=== PATIENT | female | born 2005 | race Caucasian/White ===

== ENCOUNTER 2025-08-14 20:48 | Outpatient (REF) | payer OTHER, SELFPAY ==
--- OUTSIDE RECORDS SUMMARY | 2025-08-11 08:50 | XMS_ITS | Encounter Summary ---
Author Organization [facility] Address [address] [place] [address] Phone Care Team Providers Care Milking Machine Mechanic Name Role Phone Renata Lawson DO Primary Care Provider +1- [phone] Reason for Referral * CV Imaging (Routine) - Pending ReviewSpecialtyDiagnoses / ProceduresReferred By ContactReferred To ContactCardiology Diagnoses Bicuspid aortic valve (HHS-HCC) Patent foramen ovale (HHS-HCC) Procedures Transthoracic Echo Complete [place] ECHO TTHRC R-T 2D W/WOM-MODE COMPL SPEC&COLR D Guy Charles MD [address] [facility], [address] [address] Phone: tel: fax: Referral IDStatusReasonStart DateExpiration DateVisits RequestedVisits [id number] Review Perform Procedure * Consultation (Routine) - AuthorizedSpecialtyDiagnoses / ProceduresReferred By ContactReferred To ContactCardiology Diagnoses Bicuspid aortic valve (HHS-HCC) Patent foramen ovale (HHS-HCC) Procedures Follow Up In Cardiology Guy Charles MD [address], [address] [address] Phone: tel: fax: Guy Charles MD [address], [address] [address] Phone: tel: fax: Referral IDStatusReasonStart DateExpiration DateVisits RequestedVisits [id number]/26/202512/26/202611 Reason for Visit * ReasonCommentsFollow-up2yr Encounter Details DateTypeDepartmentCare Team (Latest Contact Info)Xaogyulpokc88/26/2025 8:50 AM ESTOffice Visit [facility] [address] [phone] Guy Charles MD 703 [facility], [address] [address] Bicuspid aortic valve (HHS-HCC) (Primary Dx); Patent foramen ovale (HHS-HCC); BMI 27.0-27.9,adult Discharge Disposition: Home Social History Tobacco UseTypesPacks/DayYears UsedDateSmoking Tobacco: NeverSmokeless Tobacco: NeverAlcohol UseStandard Drinks/WeekCommentsYes0 (1 standard drink = 0.6 oz pure alcohol)CommentsUnknownSex and Gender InformationValueDate RecordedSex Assigned at BirthNot on fileLegal ZbdFnyuft79/25/2022 11:28 PM ESTGender IdentityNot on fileSexual OrientationNot on filedocumented as of this encounter Last Filed Vital Signs Vital SignReadingTime TakenCommentsBlood Xhoqdkxg310/7208/11/2025 9:24 AM EST Pulse--Temperature--Respiratory Rate--Oxygen Saturation--Inhaled Oxygen Concentration--Rrxyzl38 kg (150 lb)08/11/2025 9:24 AM YNRJdkirc854.5 cm (5' 2 ) 08/11/2025 9:24 AM ESTBody Mass Index27.44110/12/2024 9:24 AM ESTdocumented in this encounter Patient Instructions * Patient Instructions* Nubia Carroll LPN - 08/11/2025 8:50 AM EST Please bring all medicines, vitamins, and herbal supplements with you when you come to the office. Prescriptions will not be filled unless you are compliant with your follow up appointments or have a follow up appointment scheduled as per instruction of your physician. Refills should be requested at the time of your visit. BMI was above normal measurement. Current weight: 68 kg (150 lb) Weight change since last visit (-) denotes wt loss 5 lbs Weight loss needed to achieve BMI 25: 13.6 Lbs Weight loss needed to achieve BMI 30: -13.7 Lbs Provided instructions on dietary changes Provided instructions on exercise. * Attachments The following attachments cannot be sent through Care Everywhere. * Mediterranean Diet ([place]) documented in this encounter Progress Notes * Guy Charles MD - 08/11/2025 8:50 AM EST Chief Complaint Patient presents with Follow-up 2yr Subjective Darren To is a 20 y.o. female HPI Patient here for follow-up to management for previous observation abnormal echo cardiogram showing possible congenitally bicuspid aortic valve and minimally patent PFO. Since last time I saw her she denies any cardiac complaint of chest pain, palpitation, lightheadedness, dizziness or syncope. She described functional class I. Assessment 1. 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 Minimally patent PFO based on previous echo 2. Mild anxiety 3. Mildly overweight Plan 1. I reviewed at length the natural history of PFO and bicuspid aortic valve. Patient does not haveany cardiac symptoms at the moment. Patient is very active and plays competitive sport. I recommended aspirin and consideration to repeat her echo 2. I believe the patient is safe and can continue competitive sports 3. I advised the patient to take a baby aspirin 4. Patient was advised to maintain healthy weight 5. Follow-up in 1 to 2 years or earlier if the need arise Review of Systems All other systems reviewed and are negative. Vitals: 08/11/25 0924 BP: 108/72 BP Location: Left arm Patient Position: Sitting Weight: 68 kg (150 lb) Height: 1.575 m (5' 2 ) Objective Physical Exam Constitutional: Appearance: Normal appearance. HENT: Nose: Nose normal. Neck: Vascular: No carotid bruit. Cardiovascular: Rate and Rhythm: Normal rate. Pulses: Normal pulses. Heart sounds: Murmur heard. Systolic murmur is present with a grade of 1/6. Pulmonary: Effort: Pulmonary effort is normal. Abdominal: General: Bowel sounds are normal. Palpations: Abdomen is soft. Musculoskeletal: General: Normal range of motion. Cervical back: Normal range of motion. Right lower leg: No edema. Left lower leg: No edema. Skin: General: Skin is warm and dry. Neurological: General: No focal deficit present. Mental Status: She is alert. Psychiatric: Mood and Affect: Mood normal. Behavior: Behavior normal. Thought Content: Thought content normal. Judgment: Judgment normal. Allergies Patient has no known allergies. Current Medications Current Outpatient Medications Medication Instructions aspirin 81 mg, oral, Daily RT clindamycin (Cleocin T) 1 % swab APPLY TOPICALLY TO FACE TWICE DAILY norgestimate-ethinyl estradioL (Tri-Sprintec, 28,) 0.18/0.215/0.25 mg-0.035mg (28) tablet 1 tablet,Daily Assessment/Plan 1. Bicuspid aortic valve (HHS-HCC) Follow Up In Cardiology Transthoracic Echo Complete 2. Patent foramen ovale (HHS-HCC) Follow Up In Cardiology Transthoracic Echo Complete 3. BMI 27.0-27.9,adult Scribe Attestation By signing my name below, INubia LPN, Scribe attest that this documentation has been prepared under the direction and in the presence of MD Mary. Provider Attestation - Scribe documentation All medical record entries made by the Scribe were at my direction and personally dictated by me. Ihave reviewed the chart and agree that the record accurately reflects my personal performance of the history, physical exam, discussion and plan. documented in this encounter Plan of Treatment DateTypeDepartmentCare Team (Latest Contact Info)Igumavehczn71/11/2026 7:45 AM EDTAppointment at [facility] [address] [facility] [address] [place] [phone] 08/07/2026 3:50 PM ESTOffice Visit at [facility] [address] [facility] [address] [place] [phone] Guy Charles MD [address] [facility] [address], [address] [place] [address] NameTypePriorityAssociated DiagnosesOrder ScheduleTransthoracic Echo Complete EchocardiographyRoutine Bicuspid aortic valve (HHS-HCC) Patent foramen ovale (HHS-HCC) Expected: 08/11/2025 (Approximate), Expires: 08/11/2027documented as of this encounter Visit Diagnoses Diagnosis Bicuspid aortic valve (HHS-HCC)- Primary Congenital insufficiency of aortic valve Patent foramen ovale (HHS-HCC) Ostium secundum type atrial septal defect BMI 27.0-27.9,adult documented in this encounter Care Teams Team MemberRelationshipSpecialtyStart DateEnd Date Renata Lawson DO [address] [place] [address] PCP - General08/17/09documented as of this encounter
--- OUTSIDE RECORDS SUMMARY | 2025-08-14 14:00 | XMS_ITS | Encounter Summary ---
Author Organization [facility] Address [address] [facility] [place] [address] Care Team Providers Care Lining Scrubber Name Role Phone Lulu Renata Berrios DO Primary Care Provider +1- [phone] Reason for Visit * ReasonCommentsGynecologic Exam Encounter Details DateTypeDepartmentCare Team (Latest Contact Info)Gjuqixyptnl77/29/2025 2:00 PM ESTProcedure Visit [facility] LOCKEN [address] [facility] [place] [address] Elif Patel, WILD [address] [facility] [place] [address] Well woman exam with routine gynecological exam; Pectoralis minor syndrome Social History Tobacco UseTypesPacks/DayYears UsedDateSmoking Tobacco: NeverSmokeless Tobacco: NeverAlcohol UseStandard Drinks/WeekCommentsYes0 (1 standard drink = 0.6 oz pure alcohol)Caffeine: occasional teaAUDIT-CAnswerDate RecordedQ1: How often do you have a drink containing alcohol?2-4 times a month01/19/2025Q2: How many drinks containing alcohol do you have on a typical day when you are drinking?1 or 2 01/19/2025Q3: How often do you have six or more drinks on one occasion?Never 01/19/2025PHQ-2AnswerDate RecordedPatient Health Questionnaire-2 Score0 01/19/2025CommentsNoSex and Gender InformationValueDate RecordedSex Assigned at BirthNot on fileLegal BniGbhddd13/15/2023 7:34 PM EDTGender Identity Not on fileSexual OrientationNot on filedocumented as of this encounter Last Filed Vital Signs Vital SignReadingTime TakenCommentsBlood Oejbovqy527/7408/14/2025 2:37 PM EST Pulse--Temperature--Respiratory Rate--Oxygen Saturation--Inhaled Oxygen Concentration--Qtpdtl43.5 kg (151 lb)08/14/2025 2:37 PM ESTHeight--Body Mass Index27.6206 3:06 PM EDTdocumented in this encounter Progress Notes * Felipa Saavedra MA - 08/14/2025 2:00 PM EST Reason for Appointment: Patient ID: Darren To is a 20 y.o. female who presents for Gynecologic Exam Patient presents today for Annual Exam. MEDICATIONS Current Outpatient Medications Medication Instructions Adapalene-Benzoyl Peroxide (Epiduo Forte) 0.3-2.5 % gel aspirin 81 mg, Every other day clindamycin (Cleocin T) 1 % swab 1 application , 2 times daily clobetasol (Temovate) 0.05 % ointment 1 application , Every 24 hours hydrocortisone 0.5 % cream 2 times daily Tri-Lo-Calli 0.18/0.215/0.25 MG-25 MCG tablet TAKE 1 TABLET BY MOUTH IN THE MORNING. PT NEEDS APPOINTMENT FOR FURTHER REFILLS ALLERGIES No Known Allergies PROBLEMS Active Ambulatory Problems Diagnosis Date Noted Allergic contact dermatitis due to cosmetics 01/05/2023 Bicuspid aortic valve ([facility]) 11/27/2022 Patellofemoral syndrome of right knee 03/17/2023 Patent foramen ovale ([facility]) 11/27/2022 Pectoralis minor syndrome 03/17/2023 Plantar wart 03/17/2023 Resolved Ambulatory Problems Diagnosis Date Noted Loose body in knee 03/17/2023 Other chronic pain 03/17/2023 PFO (patent foramen ovale) ([facility]) 03/18/2023 Past Medical History: Diagnosis Date Acne HPV vaccine 2020 HISTORY PAST MEDICAL HISTORY SOCIAL HISTORY Past Medical History: Diagnosis Date Acne Bicuspid aortic valve ([facility]) 2021 HPV vaccine 2020 Gardasil 9 Series completed PFO (patent foramen ovale) ([facility]) 2021 Social History Tobacco Use Smoking status: Never Smokeless tobacco: Never Substance Use Topics Alcohol use: Yes Comment: Caffeine: occasional tea Drug use: Never FAMILY HISTORY Family History Problem Relation Name Age of Onset Crohn's disease Mother Hypertension Father Hyperlipidemia Father No Known Problems Sister Polycystic ovary syndrome Mother's Sister Other (hysterectomy) Paternal Grandmother d/t cancer SURGICAL HISTORY Past Surgical History: Procedure Laterality Date WISDOM TOOTH EXTRACTION 2024 REVIEW OF SYSTEMS Review of Systems: Review of Systems Constitutional: Negative. HENT: Negative. Eyes: Negative. Respiratory: Negative. Cardiovascular: Negative. Gastrointestinal: Negative. Genitourinary: Negative. Musculoskeletal: Negative. Skin: Negative. Neurological: Negative. All other systems reviewed and are negative. Hematological: Negative. Endocrine: Negative. Allergic/Immunologic: Negative. OBJECTIVE Objective: Physical Exam Constitutional: Appearance: Normal appearance. She is well-developed. Genitourinary: Vulva normal. Right Adnexa: not tender and no mass present. Left Adnexa: not tender and no mass present. No cervical discharge. Breasts: Breasts are soft. Right: Normal. Left: Normal. HENT: Head: Normocephalic. Nose: Nose normal. Mouth/Throat: Mouth: Mucous membranes are moist. Cardiovascular: Rate and Rhythm: Normal rate and regular rhythm. Pulmonary: Effort: Pulmonary effort is normal. Breath sounds: Normal breath sounds. Abdominal: General: Bowel sounds are normal. There is no distension. Palpations: Abdomen is soft. Tenderness: There is no abdominal tenderness. There is no guarding or rebound. Musculoskeletal: General: No swelling. Normal range of motion. Cervical back: Normal range of motion. Right lower leg: No edema. Left lower leg: No edema. Neurological: General: No focal deficit present. Mental Status: She is alert and oriented to person, place, and time. Skin: General: Skin is warm and dry. Psychiatric: Mood and Affect: Mood normal. Behavior: Behavior normal. Vitals and nursing note reviewed. Exam conducted with a local delivery driver present. Vitals: Estimated body mass index is 27.07 kg/m?? as calculated from the following: Height as of 01/19/25: 5' 2 . Weight as of 01/19/25: 148 lb. BP: No LMP recorded. Assessment/Plan ICD-10-CM 1. Well woman exam with routine gynecological exam Z01.419 Assessment/Plan Annual Exam: Patient presents today for an annual exam. Patient states she is doing well and has no complaints. Pap was obtained without difficulty. No orders of the defined types were placed in this encounter. Follow Up: Patient is to return in one year for annual unless needed otherwise. Documented by Felipa Saavedra MA on behalf of: Elif Patel NP documented in this encounter Plan of Treatment DateTypeDepartmentCare Team (Latest Contact Info)Myikqreddrx09/13/2027 9:00 AM ESTProcedure Visit [facility] MELGARGYN [address] [facility] [place] [address] Elif Patel NP [address] [facility] [place] [address] NameTypePriorityAssociated DiagnosesOrder SchedulePap SmearPathology and CytologyRoutine Well woman exam with routine gynecological exam Ordered: 08/14/2025documented as of this encounter Visit Diagnoses Diagnosis Well woman exam with routine gynecological exam Routine gynecological examination Pectoralis minor syndrome Other specified disorders of arteries and arterioles documented in this encounter Care Teams Team MemberRelationshipSpecialtyStart DateEnd Date Renata Lawson DO [address] [place] [address] PCP - GeneralFamily Medicine12/24/22documented as of this encounter
--- OUTSIDE RECORDS SUMMARY | 2025-08-14 21:07 | XMS_ITS | Clinical Summary ---
Author Organization [facility] Address [address] [place] [address] Phone Care Team Providers Care Boat Master Name Role Phone Renata Lawson DO Primary Care Provider +1- [phone] Allergies No known active allergies Medications MedicationSigDispense QuantityRefillsLast FilledStart DateEnd DateStatus aspirin 81 mg chewable tablet Chew and swallow 1 tablet (81 mg) once daily.Active norgestimate-ethinyl estradioL (Tri-Sprintec, 28,) 0.18/0.215/0.25 mg-0.035mg (28) tablet Take 1 tablet by mouth once daily.02/24/2022ctive clindamycin (Cleocin T) 1 % swab APPLY TOPICALLY TO FACE TWICE DAILYActive Active Problems ProblemNoted DateDiagnosed DateBMI 27.0-27.9,adult08/11/2025Never smoked tobacco 08/11/2025icuspid aortic valve11/27/2022atent foramen ovale11/27/2022 Encounters DateTypeDepartmentCare WatsWhhdlsqmuhz26/26/2025 8:50 AM ESTOffice Visit at [facility] [address] [phone] Guy Charles MD Bicuspid aortic valve (HHS-HCC) (Primary Dx); Patent foramen ovale (HHS-HCC); BMI 27.0-27.9,adult Discharge Disposition: Home08/11/2025Travelfrom Last 3 Months Family History Medical HistoryRelationNameCommentsHeart attackMaternal GrandfatherRelationName StatusCommentsMaternal Grandfather Social History Tobacco UseTypesPacks/DayYears UsedDateSmoking Tobacco: NeverSmokeless Tobacco: NeverAlcohol UseStandard Drinks/WeekCommentsYes0 (1 standard drink = 0.6 oz pure alcohol)CommentsUnknownSex and Gender InformationValueDate RecordedSex Assigned at BirthNot on fileLegal PsrTnuabk22/25/2022 11:28 PM ESTGender IdentityNot on fileSexual OrientationNot on file Last Filed Vital Signs Vital SignReadingTime TakenCommentsBlood Rrfshxfy003/7208/11/2025 9:24 AM EST Pnixf378703/17/2023 1:50 PM EDTTemperature--Respiratory Rate--Oxygen Saturation-- Inhaled Oxygen Concentration--Jrgein35 kg (150 lb)08/11/2025 9:24 AM ESTHeight 157.5 cm (5' 2 )08/11/2025 9:24 AM ESTBody Mass Index27.44110/12/2024 9:24 AM EST Plan of Treatment DateTypeDepartmentCare Team (Latest Contact Info)Gnaalamjqqz57/11/2026 7:45 AM EDTAppointment at [facility] [address] [place] [phone] 08/07/2026 3:50 PM ESTOffice Visit at [facility] [address] [place] [phone] Guy Charles MD [address] [place] [address], [address] [address] Health MaintenanceDue DateLast DoneCommentsChlamydia and Gonorrhea Screening 2004HIV Gufgxmmoj2004Hearing Screening (#1)2008IPV Vaccines (2 of 3 - 4-dose series)DTaP/Tdap/Td Vaccines (3 - Td or Tdap) , 04/06/2009Meningococcal B Vaccine (1 of 2 - Standard) 2020Hepatitis C Chbznfcry03/19/2022Hepatitis B Vaccines (1 of 3 - 19+ 3- dose series)2023neumococcal Vaccine: Pediatrics and At-Risk Adult Patients (1 of 2 - PCV)2023ervical Cancer Ixeyflcrz65/19/2025HPV/Cotest 2025Pap Smear2025OVID-19 Vaccine (1 - 2024- season)2025 Influenza Vaccine (#1)5Yearly Adult Tdcqmrbc30//590030/12/2024, 03/24/2023Lipid Panel02/09/Zoster Vaccines (1 of 2)2054 04/06/2009MMR EymivzuqHouiikcjz31/21/2009HPV BssstqswGfyobgnsi93/17/2020, 12/01/2019, 10/03/2019Meningococcal FwgiypzSnegaxkik64/01/2022, 04/14/2016HIB VaccinesAged OutNo longer eligible based on patient's age to complete this topic Hepatitis A VaccinesAged OutNo longer eligible based on patient's age to complete this topicRotavirus VaccinesAged OutNo longer eligible based on patient's age to complete this topic Insurance * Guarantor: Racquel Wray LAccount TypeRelation to PatientDate of BirthPhone Billing AddressPersonal/JoogqbRnlaeq12/25/1981 [address] [place] [address] Care Teams Team MemberRelationshipSpecialtyStart DateEnd Date Renata Lawson DO [address] [address] PCP - General08/17/09
--- OUTSIDE RECORDS SUMMARY | 2025-08-14 21:07 | XMS_ITS | Clinical Summary ---
Author Organization [facility] Address [address] [place] [address] Care Team Providers Care Alterations Expert Name Role Phone SulmaRenata bal Primary Care Provider + [phone] Lala Campos Unavailable Margret Molina RD Unavailable [phone] Sujatha Solis Unavailable Unavailable Tran Cleveland DMD Unavailable [phone] Allergies No known active allergies Medications MedicationSigDispense QuantityRefillsLast FilledStart DateEnd DateStatus EPIDUO FORTE 0.3-2.5 % Gel 12/03/2018Active Norgestimate-Ethinyl Estradiol (Tri-Sprintec) 0.18/0.215/0.25 MG-35 MCG tablet Take 1 tablet by mouth daily.Active Mupirocin 2 % ointment Indications:Paronychia of great toe, rightApply 1 Application topically 3 times daily. 22 g 4Active aspirin 81 MG Chew Tab chewable tablet Chew 1 tablet daily.Active Ibuprofen 600 MG tablet Take 1 tablet by mouth every 6 hours for 7 days. 28 tablet 5Active acetaminophen 650 MG Tab CR Take 1 tablet by mouth every 6 hours for 7 days. 28 tablet 5Active chlorhexidine 0.12 % Solution oral solution 15 mL by Mouth/Throat route 2 times daily for 7 days. 210 mL 5Active hydroCODone-acetaminophen 5-325 MG tablet Indications:Impacted teethTake 1 tablet by mouth every 6 hours as needed for up to 6 doses. 6 tablet 5Active Active Problems No known active problems Encounters DateTypeDepartmentCare PnigKwqqljzljiu76/14/2025[facility] [address] [place] [phone] Sujatha Solis Follow-up07/30/2025[facility]phone [facility] [address] [place] [phone] Sujatha Solis Follow-up06/22/2025 1:00 PM ESTOffice Visit Endodontics [address] [place] [address], [address]th [place] [phone] Varsha Lawrence, DDS Drum, Karla Berrios, ROSANGELAS Necrosis of dental pulp (Primary Dx)06/20/2025 9:30 AM ESTOffice Visit [facility] [address] [place] [phone] Lala Campos Weiqing, ALEXEY Pulpitis (Primary Dx); Defective dental vdlhisnttzg57/02/2025 8:45 AM EDTOffice Visit [facility] [address] [place] [phone] Lala Campos Elisandra, DDS Caries (Primary Dx); Defective dental restorationfrom Last 3 Months Social History Tobacco UseTypesPacks/DayYears UsedDateSmoking Tobacco: NeverSmokeless Tobacco: Never Tobacco Cessation:Counseling Given: Not Answered Alcohol UseStandard Drinks/WeekCommentsYes2 (1 standard drink = 0.6 oz pure alcohol)CommentsNoSex and Gender InformationValueDate RecordedSex Assigned at BirthNot on fileLegal NguXmblvx12/01/2015 12:37 PM ESTGender LusbdoxfMdnehm25/21/2025 2:50 PM EDTSexual ZcvwqkcqiewQfnxqzjr82/21/2025 2:50 PM EDT Last Filed Vital Signs Vital SignReadingTime TakenCommentsBlood Odojollf163/8011 11:07 AM EST Gabtx8068/09/2024 9:02 AM FPRBxhrsuecper27.4 ??C (97.6 ??F)12/06/2024 3:30 PM EDTRespiratory Cnoy2534 9:02 AM EDTOxygen Zgiqeisopm704%12/06/2024 3:30 PM EDTInhaled Oxygen Concentration--Cyeduv00.5 kg (146 lb 9.6 oz)12/06/2024 10:29 AM BHFBolzzj636 cm (5' 3 )12/06/2024 10:29 AM EDTBody Mass Index25.97 12/06/2024 10:29 AM EDT Plan of Treatment DateTypeDepartmentCare Team (Latest Contact Info)Erolurczzdy84/21/2026 1:00 PM ESTOffice Visit Endodontics [address] [place] [address], [address] [place] [phone] Varsha Lawrence, DDS [address], [address] [place] [phone] Cassia Sierra, DDS [address] [phone] Health MaintenanceDue DateLast DoneCommentsGONORRHEA WEGLQP85 2004HEPATITIS C VIRUS QRCWEOGUL2004HIV SCREENING CBXANTZIYB65/19/2019CHLAMYDIA SCREEN 2020HEP B VACCINE (1 of 3 - 19+ 3-dose series)2023ERVICAL CANCER SCREENING AHZWIYUDFR25/19/2025COVID-19 VACCINE ( season)2025 INFLUENZA VACCINE (#1)2025Dental Oral Exam, 09/23/2024 Dental Ndtuwyyshox46/16/202609/, 09/27/20240636FCLRJIL42, 04/06/2009MMR BEEMDLNGjmvzecibkkj92/21/2009VARICELLA VACCINEDiscontinued 04/06/2009DTAP/TDAP/TD BMMZQWDKfndrsoplism36/29/2016, 04/06/2009TDAP (ADULT) Plzrukajb80/29/2016, 04/06/2009HPV VACCINE ZWOOWphxpnzgk12/17/2020, 12/01/2019, 10/03/2019HPV BNMLGIWPxjssdkwd49/17/2020, 12/01/2019, 10/03/2019MCV4 VACCINE Dslpnzbxlqcy41/01/2022, 04/14/2016PNEUMOCOCCAL VACCINE SERIESAged OutNo longer eligible based on patient's age to complete this topic Procedures Procedure NamePriorityDate/TimeAssociated PuunkylnySkgvwyab08 ACCESS - ENDODONTIC THERAPY, MOLAR TOOTH (EXCLUDING FINAL SCIENTOLOGIST)Fihcgfi4806/22/2025 1:00 PM EST Necrosis of dental pulp 30 CLEANS AND SHAPES - ENDODONTIC THERAPY, MOLAR TOOTH (EXCLUDING FINAL SCIENTOLOGIST)Bbcwyqa7206/22/2025 1:00 PM EST Necrosis of dental pulp OFFICE VISIT FOR OBSERVATION (DURING REGULARLY SCHEDULED HOURS) - NO OTHER SERVICES LDLWNHSGSXymobtk92/04/2025 9:30 AM EST Pulpitis 30 MOB IMPRESSION - ONLAY - PORCELAIN/CERAMIC - 3 EKDXCctoxci13/02/2025 8:45 AM EDT Caries Defective dental gnosticism Full PROPHYLAXIS - MUWXPVflzswm45/15/2025 1:00 PM EDT Gingivitis PERIODIC ORAL EVALUATION - ESTABLISHED KVAWANFDwxvvif38/15/2025 1:00 PM EDT Encounter for dental examination from Last 3 Months or Most Recently Relevant to Health Maintenance Insurance Care Teams Team MemberRelationshipSpecialtyStart DateEnd Date Renata Lawson DO [address] [place] [address] PCP - GeneralFami Medicine12/01/24 Lala Campos [address] [phone] Dental Student12/27/24 Margret Molina, RD [address] 2 [place] [phone] Clinic DirectorDentistry01/06/25 Sujatha Solis Hygienist Tzwasvo23/22/25 Tran Cleveland, DMD [address] [place] [address] Clinic VivipnreFynlrfhmf95/5/25
--- OUTSIDE RECORDS SUMMARY | 2025-08-14 21:07 | XMS_ITS | Encounter Summary ---
Author Organization [facility] Address [address] [address] Phone Care Team Providers Care Splicer Helper Name Role Phone EmyRenata cifuentes Primary Care Provider [phone] Lala Campos Unavailable Margret Molina [facility] Unavailable [phone] Sujatha Solis Unavailable Unavailable Tran Cleveland DMD Unavailable [phone] Reason for Visit * ReasonOnset DateCommentsFollow-up07/30/2025 Encounter Details DateTypeDepartmentCare Team (Latest Contact Info)Tfebohqnjeg02/14/2025[facility]phone [facility] [address] [phone] Sujatha Solis Follow-up Social History Tobacco UseTypesPacks/DayYears UsedDateSmoking Tobacco: NeverSmokeless Tobacco: NeverAlcohol UseStandard Drinks/WeekCommentsYes2 (1 standard drink = 0.6 oz pure alcohol)CommentsNoSex and Gender InformationValueDate RecordedSex Assigned at BirthNot on fileLegal ChqCwovon12/01/2015 12:37 PM ESTGender KpzdswzcJfqbtp32/21/2025 2:50 PM EDTSexual VocwetfldmbZqxmsqmk99/21/2025 2:50 PM EDTdocumented as of this encounter Plan of Treatment DateTypeDepartmentCare Team (Latest Contact Info)Sqgfldwllqh52/21/2026 1:00 PM ESTOffice Visit Endodontics [address], [address] [place] [phone] Varsha Lawrence, DDS [address], [address] [place] [phone] Cassia Sierra, DDS [address] [place] [address] documented as of this encounter Visit Diagnoses Not on filedocumented in this encounter Care Teams Team MemberRelationshipSpecialtyStart DateEnd Date Renata Lawson DO [address] [place] [address] PCP - GeneralFamily Medicine12/01/24 Lala Campos [address] [place] [address] Dental Student12/27/24 Margret Molina, RD [address] [place] [phone] Clinic DirectorDentistry01/06/25 Sujatha Solis Hygienist Uhlecdj21/22/25 Tran Cleveland, COLLEEN [address] [place] [address] Clinic OfncpwmjRevuqbpem94/5/25documented as of this encounter
--- OUTSIDE RECORDS SUMMARY | 2025-08-14 21:07 | XMS_ITS | Clinical Summary ---
Author Organization [facility] Address [address] [place] [address] Care Team Providers Care Accounting Director Name Role Phone No, Physician Primary Care Provider Unavailabl e Allergies No known active allergies Medications MedicationSigDispense QuantityRefillsLast FilledStart DateEnd DateStatus norgestimate-ethinyl estradioL (ORTHO TRI-CYCLEN,TRINESSA) 0.18/0.215/0.25 mg- 0.035mg (28) per tablet Take 1 (one) tablet by mouth daily .Active aspirin 81 MG EC tablet Take 1 (one) tablet (81 mg total) by mouth every other day .03/20/2022ctive clindamycin (CLEOCIN T) 1 % Swab APPLY TOPICALLY TO FACE TWICE DAILYActive doxycycline hyclate (VIBRAMYCIN) 100 MG capsule TAKE 1 CAPSULE BY MOUTH ONCE DAILY WITH FOOD AND WATERActive Active Problems No known active problems Encounters DateTypeDepartmentCare ApeoNivimuplqhq66/02/2025 5:39 PM EST - 06/18/2025 11:59 PM ESTHospital Encounter Urgent Care [facility] [address] [place] [address] Ivy Bird DO Discharge Disposition: Home06/18/2025 5:30 PM ESTOffice Visit [facility] [address] [place] [address] Ivy Bird DO Contusion of left great toe without damage to nail, initial encounter (Primary Dx); Injury of left great toe, initial encounterfrom Last 3 Months Social History Tobacco UseTypesPacks/DayYears UsedDateSmoking Tobacco: NeverSmokeless Tobacco: NeverAlcohol UseStandard Drinks/WeekCommentsYes0 (1 standard drink = 0.6 oz pure alcohol)CommentsNoSex and Gender InformationValueDate RecordedSex Assigned at BirthNot on fileLegal FoePzmcbl85/02/2025 5:16 PM ESTGender Identity Not on fileSexual OrientationNot on file Last Filed Vital Signs Vital SignReadingTime TakenCommentsBlood Udyjsesu119/7811 5:22 PM EST Candj9872 5:22 PM WHFSvpinetyuxl51 ??C (98.6 ??F)06/18/2025 5:22 PM EST Respiratory Raoc897808/18/2024 5:22 PM ESTOxygen Ilbkooycnj50%06/18/2025 5:22 PM ESTInhaled Oxygen Concentration--Whenvh42.8 kg (145 lb)06/18/2025 5:22 PM EST Lvemqj269 cm (5' 3 )06/18/2025 5:22 PM ESTBody Mass Index25.6906/18/2025 5:22 PM EST Plan of Treatment Health MaintenanceDue DateLast DoneCommentsChlamydia Fqppklrvr2004Wellness Visit2007IPV Vaccines (2 of 3 - 4-dose series) Varicella Vaccines (2 of 2 - 2-dose childhood series) Depression Screening/Follow-Up (PHQ-2/9)2016HIV Nrwnxivha45/19/2019 Meningococcal B Vaccine (1 of 2 - Standard)2020Hepatitis C Screening 2022Hepatitis B Vaccines (1 of 3 - 19+ 3-dose series)3Pap Smear 5COVID-19 Vaccine (1 - 2024- season)2025Influenza Vaccine (#1) 2025Tetanus/Diphtheria/Pertussis (3 - Td or Tdap)6004/14/2016, 04/06/2009Zoster Vaccines (1 of 2)4RSV Vaccines (1 - 1-dose 75+ series) 2079MMR AfefgjdrOpahkbspq31/21/2009HPV VnqikdgsDxvjvlofb29/17/2020, 12/01/2019, 10/03/2019Meningococcal ACWY JftvtchRcxgkoikq02/01/2022, 04/14/2016 HIB VaccinesAged OutNo longer eligible based on patient's age to complete this topicHepatitis A VaccinesAged OutNo longer eligible based on patient's age to complete this topicPneumococcal VaccineAged OutNo longer eligible based on patient's age to complete this topicRotavirus VaccinesAged OutNo longer eligible based on patient's age to complete this topic Procedures Procedure NamePriorityDate/TimeAssociated DiagnosisCommentsXR FOOT LEFT 3+ VIEWS (STANDARD)ASAP108/18/2024 5:46 PM EST Injury of left great toe, initial encounter from Last 3 Months Results * XR Foot Left 3+ Views (Standard) (06/18/2025 5:46 PM EST)Anatomical Region LateralityModalityFoot, AnkleDigital RadiographySpecimen (Source)Anatomical Location / LateralityCollection Method / VolumeCollection TimeReceived Time 06/18/2025 5:57 PM EST Impressions 06/18/2025 7:02 PM EST Negative x-rays of the left foot with specific attention given to left great toe. [employer] Workstation ID: ?? [id number] Narrative 06/18/2025 7:02 PM EST EXAMINATION: XR FOOT LEFT 3+ VIEWS (STANDARD) ??06/18/2025 5:43 pm HISTORY: ORDERING SYSTEM PROVIDED HISTORY: ??Injury of left great toe, initial encounter, TECHNOLOGIST PROVIDED HISTORY: Injury/Trauma Reason for exam: Pain to 1st digit on L foot. Cancer History: - Surgery, RadiationHistory: - Encounter Type: Initial Mechanism of injury: Dropped weight x 3 days ago. ORDERING SYSTEM PROVIDED DIAGNOSIS CODES: S99.922A Injury of left great toe, initial encounter COMPARISON: None. FINDINGS: Three views. ??Osseous alignment of the foot is normal. ??Specific attention given to the great toe. ??Plantar arch is preserved. ??No stress reaction or fracture. ??No soft tissue gas collection or foreign body. Procedure Note Bright Gerard MD - 06/18/2025 EXAMINATION: XR FOOT LEFT 3+ VIEWS (STANDARD) 06/18/2025 5:43 pm HISTORY: ORDERING SYSTEM PROVIDED HISTORY: Injury of left great toe, initialencounter, TECHNOLOGIST PROVIDED HISTORY: Injury/Trauma Reason for exam: Pain to 1st digit on L foot. Cancer History: - Surgery, RadiationHistory: - Encounter Type: Initial Mechanism of injury: Dropped weight x 3 days ago. ORDERING SYSTEM PROVIDED DIAGNOSIS CODES: S99.922A Injury of left great toe, initial encounter COMPARISON: None. FINDINGS: Three views. Osseous alignment of the foot is normal. Specific attentiongiven to the great toe. Plantar arch is preserved. No stress reaction orfracture. No soft tissue gas collection or foreign body. IMPRESSION: Negative x-rays of the left foot with specific attention given to leftgreat toe. [employer] Workstation ID: [id number] Authorizing ProviderResult TypeResult StatusJulikarie Bird DOIMG DIAGNOSTIC IMAGING ORDERABLESFinal Result from Last 3 Months Insurance Care Teams Team MemberRelationshipSpecialtyStart DateEnd Date No, Physician [facility] PCP - Dsfxrzh01/2/25
--- OUTSIDE RECORDS SUMMARY | 2025-08-14 21:07 | XMS_ITS | Encounter Summary ---
Author Organization [facility] Address [address] [place] [address] Care Team Providers Care Sliver Lap Machine Tender Name Role Phone Renata Lawson DO Primary Care Provider [phone] Encounter Details DateTypeDepartmentCare Team (Latest Contact Info)Crzamgzwngq14/29/2025bstract [facility] [address] [facility] [address] [place] [phone] Renata Lawson DO [address] [facility] [address] [place] [address] Social History Tobacco UseTypesPacks/DayYears UsedDateSmoking Tobacco: NeverSmokeless [...] InformationValueDate RecordedSex Assigned at BirthNot on fileLegal HdzYfwyuj53/15/2023 7:34 PM EDTGender Identity Not on fileSexual OrientationNot on filedocumented as of this encounter Plan of Treatment DateTypeDepartmentCare Team (Latest Contact Info)Nazajlivtwn38/13/2027 9:00 AM ESTProcedure Visit [facility] [address] [place] [address] Elif Patel, STUDIO HAND [address] [facility] [place] [address] documented as of this encounter Visit Diagnoses Not on filedocumented in this encounter Care Teams Team MemberRelationshipSpecialtyStart DateEnd Date Renata Lawson DO [address] [facility] 230 [place] [address] PCP - GeneralFamily Medicine12/24/22documented as of this encounter
--- OUTSIDE RECORDS SUMMARY | 2025-08-14 21:07 | XMS_ITS | Clinical Summary ---
Author Organization [facility] tem Address [id number] [address] [place] [address] Care Team Providers Care Cable Television Line Technician Name Role Phone Unavailable Primary Care Provider Unavailabl e Social History Tobacco UseTypesPacks/DayYears UsedDateSmoking Tobacco: Never Assessed CommentsUnknownSex and Gender InformationValueDate RecordedSex Assigned at Not on fileLegal MiwAseotx22/24/2022 10:38 AM EDTGender IdentityNot on file Sexual OrientationNot on file Plan of Treatment Health MaintenanceDue DateLast DoneCommentsDepression Aibjgfuub18/19/2016Tobacco Advgdswqu59/19/2016Adult BMI Fgkteceev42/19/2022DTaP,Tdap and Td Vaccines (1 - Tdap)3Pap Smear2025Influenza Zyxsnoz6604/17/2025 Medical Devices Not on file Insurance * Guarantor: Edis WRAY TypeRelation to PatientDate of BirthPhoneBilling AddressPersonal/FamilyMother [address] [place] [address]
--- OUTSIDE RECORDS SUMMARY | 2025-08-14 21:07 | XMS_ITS | Clinical Summary ---
Author Organization [facility] Address [address] [place] [address] Care Team Providers Care Lapper Name Role Phone Renata Lawson DO Primary Care Provider [phone] Allergies No known active allergies Medications MedicationSigDispense QuantityRefillsLast FilledStart DateEnd DateStatus clindamycin (Cleocin T) 1 % swab Apply 1 application topically in the morning and 1 application before bedtime. Active hydrocortisone 0.5 % cream Apply topically 2 (two) times a day.Active aspirin 81 MG EC tablet Take 81 mg by mouth every other day.Active Adapalene-Benzoyl Peroxide (Epiduo Forte) 0.3-2.5 % gel 11/27/2022ctive Tri-Lo-Calli 0.18/0.215/0.25 MG-25 MCG tablet Indications:Uses controlTAKE 1 TABLET BY MOUTH IN THE MORNING. PT NEEDS APPOINTMENT FOR FURTHER REFILLS 84 tablet 5Active clobetasol (Temovate) 0.05 % ointment Indications:Pectoralis minor syndromeApply 1 application topically 1 (one) time each day at the same time 45 g 5Active clobetasol (Temovate) 0.05 % ointment Apply 1 application topically 1 (one) time each day at the same time.03/18/2022 08/14/2025Discontinued(Reorder) Active Problems ProblemNoted DateDiagnosed DatePatellofemoral syndrome of right knee03/17/2023 Pectoralis minor lzeohvob97/01/2023lantar wart03/17/2023llergic contact dermatitis due to xbpuloyzf96/22/2023icuspid aortic valve ([facility])11/27/2022 Patent foramen ovale ([facility])11/27/2022 Resolved Problems ProblemNoted DateDiagnosed DateResolved DatePFO (patent foramen ovale) ([facility]) Loose body in knee/03/2023Other chronic pain Encounters DateTypeDepartmentCare UzxzBzbbssfybxg43/29/2025 2:00 PM ESTProcedure Visit [facility] [address] [place] [address] Elif Patel NP Well woman exam with routine gynecological exam; Pectoralis minor soldmxvt86/29/2025Refill [facility] [address] [place] [address] Elif Patel NP Pectoralis minor zaryfrqa54/29/2025bstract [facility] [address] [facility] [address] [place] [address] Renata Lawson DO 05/30/2025[facility] [address] [place] [phone] Bairon Hollingsworth DO Uses controlfrom Last 3 Months Family History Medical HistoryRelationNameCommentsHyperlipidemiaFatherHypertensionFatherCrohn's diseaseMotherPolycystic ovary syndromeMother's SisterhysterectomyPaternal Grandmotherd/t cancerNo Known ProblemsSisterRelationNameStatusCommentsFather AliveMotherAliveMother's SisterPaternal GrandmotherSisterAlive Social History Tobacco UseTypesPacks/DayYears UsedDateSmoking Tobacco: NeverSmokeless Tobacco: Never Tobacco Cessation:Counseling Given: Not Answered Alcohol UseStandard Drinks/WeekCommentsYes0 (1 standard drink = 0.6 [...] InformationValueDate RecordedSex Assigned at BirthNot on fileLegal UnhQqckcg02/15/2023 7:34 PM EDTGender Identity Not on fileSexual OrientationNot on file Last Filed Vital Signs Vital SignReadingTime TakenCommentsBlood Xxtzabjl518/7412 2:37 PM EST Shqxm786101/19/2025 3:06 PM NRCTjrztovhyic44.1 ??C (98.7 ??F)01/19/2025 3:06 PM EDTRespiratory Rate--Oxygen Thspmociad01%01/19/2025 3:06 PM EDTInhaled Oxygen Concentration--Rafdvg39.5 kg (151 lb)08/14/2025 2:37 PM ZLVYnaqdr116.5 cm (5' 2 )01/19/2025 3:06 PM EDTBody Mass Index27.6206 3:06 PM EDT Plan of Treatment DateTypeDepartmentCare Team (Latest Contact Info)Eedbzisdfqu31/13/2027 9:00 AM ESTProcedure Visit [facility] [address] [place] [address] Elif Patel, WILD [address] [facility] [place] [address] Health MaintenanceDue DateLast DoneCommentsPneumococcal Vaccine: Pediatrics (0 to 5 Years) and At-Risk Patients (6 to 64 Years) (1 of 2 - PCV)2023 Influenza Vaccine (#1)2025 Insurance Care Teams Team MemberRelationshipSpecialtyStart DateEnd Date Renata Lawson DO [address] [address] [place] [address] PCP - GeneralFamily Medicine12/24/22
--- OUTSIDE RECORDS SUMMARY | 2025-08-14 21:07 | XMS_ITS | Encounter Summary ---
Author Organization [facility] Address [address] [place] [address] Phone Care Team Providers Care Manager Of Manufacturing Name Role Phone Renata Lawson DO Primary Care Provider [phone]- [phone] Encounter Details DateTypeDepartmentCare Team (Latest Contact Info)Aerynyntdlj11/26/2025Travel Social History Tobacco UseTypesPacks/DayYears UsedDateSmoking Tobacco: NeverSmokeless Tobacco: NeverAlcohol UseStandard Drinks/WeekCommentsYes0 (1 standard drink = 0.6 oz pure alcohol)CommentsUnknownSex and Gender InformationValueDate RecordedSex Assigned at BirthNot on fileLegal XbyOsutad67/25/2022 11:28 PM ESTGender IdentityNot on fileSexual OrientationNot on filedocumented as of this encounter Functional Status * Communicable Disease ScreeningQuestionAnswerDate of AssessmentAuthorDo you have any of the following new or worsening symptoms?None of these08/11/2025 6:58 AM Carlos Generic documented as of this encounter Plan of Treatment DateTypeDepartmentCare Team (Latest Contact Info)Nztbhgmygdc00/11/2026 7:45 AM EDTAppointment at [facility] [address] [address] [place] [phone] 08/07/2026 3:50 PM ESTOffice Visit at [facility] [address] [facility] [address] [place] [phone] Guy Charles MD [address] [place] [address] documented as of this encounter Visit Diagnoses Not on filedocumented in this encounter Care Teams Team MemberRelationshipSpecialtyStart DateEnd Date Renata Lawson DO [address] [facility] [address] [place] [address] PCP - General08/17/09documented as of this encounter
--- OUTSIDE RECORDS SUMMARY | 2025-08-14 21:07 | XMS_ITS | Encounter Summary ---
Author Organization [facility] Address [address] [facility] [place] [address] Care Team Providers Care Case Briefer Name Role Phone Emyvane Renata Yash VELAZQUEZ Primary Care Provider [phone]- [phone] Reason for Visit * ReasonCommentsMed Change Request Encounter Details DateTypeDepartmentCare Team (Latest Contact Info)Bwxgdzhxubz32/29/2025Refill [facility] [address] [facility] [place] [place] [address] Elif Patel, GROUNDMAN/LINEMAN [address] [facility] [place] [address] Pectoralis minor syndrome Social History Tobacco UseTypesPacks/DayYears [...] InformationValueDate RecordedSex Assigned at BirthNot on fileLegal UacJjfrxn47/15/2023 7:34 PM EDTGender Identity Not on fileSexual OrientationNot on filedocumented as of this encounter Plan of Treatment DateTypeDepartmentCare Team (Latest Contact Info)Hnoetubodxv85/13/2027 9:00 AM ESTProcedure Visit [facility] [address] [facility] [address] [place] [address] Elif Patel, WILD [address] [facility] [place] [address] documented as of this encounter Visit Diagnoses Diagnosis Pectoralis minor syndrome Other specified disorders of arteries and arterioles documented in this encounter Care Teams Team MemberRelationshipSpecialtyStart DateEnd Date Renata Lawson, [address] [place] [address] PCP - GeneralFamily Medicine12/24/22documented as of this encounter
--- OUTSIDE RECORDS SUMMARY | 2025-08-14 21:07 | XMS_ITS | Clinical Summary ---
Author Organization [facility] Address [address] [place] [address] Care Team Providers Care Supervisor Tile [place] Mottle Name Role Phone Unknown, Provider Primary Care Provider Unavaila ble Medications MedicationSigDispense QuantityRefillsLast FilledStart DateEnd DateStatus naproxen sodium (ALEVE) 220 mg oral tablet Take by mouth.Active Active Problems No known active problems Social History Tobacco UseTypesPacks/DayYears UsedDateSmoking Tobacco: Never Assessed CommentsUnknownSex and Gender InformationValueDate RecordedSex Assigned at Not on fileLegal VcnNzrqhe15/03/2017 9:30 PM EDTGender IdentityNot on fileSexual OrientationNot on file Last Filed Vital Signs Vital SignReadingTime TakenCommentsBlood Qrxzghxd660/6006 9:48 PM EDT Sewop3500 9:48 PM WONHluezvjibyk89.6 ??C (97.9 ??F)01/17/2017 9:48 PM EDTRespiratory Fiud2440 9:48 PM EDTOxygen Saturation--Inhaled Oxygen Concentration--Jghomy54.6 kg (138 lb 0.1 oz)01/17/2017 9:48 PM EDTHeight--Body Mass Index-- Plan of Treatment Health MaintenanceDue DateLast DoneCommentsMMR Vaccine (1 of 1 - Standard series)2005DTaP/Tdap/Td Vaccine (1 - Tdap)2011Varicella Vaccine (1 of 2 - 13+ 2-dose series)2017HPV Vaccine (1 - 3-dose series)2019 Meningococcal ACWY Vaccine (1 - 2-dose series)2020Meningococcal B Vaccine (1 of 2 - Standard)2020Hepatitis B Vaccine (1 of 3 - 19+ 3-dose series) 3COVID-19 Vaccine (2024- season)2025Influenza Vaccine (#1) 2025HIB VaccineAged OutNo longer eligible based on patient's age to complete this topicHepatitis A VaccineAged OutNo longer eligible based on patient's age to complete this topicIPV VaccineAged OutNo longer eligible based on patient's age to complete this topicPneumococcal VaccineAged OutNo longer eligible based on patient's age to complete this topicRSV AntibodiesAged OutNo longer eligible based on patient's age to complete this topicRotavirus Vaccine Aged OutNo longer eligible based on patient's age to complete this topic Insurance * Guarantor: Edis WRAY TypeRelation to PatientDate of BirthPhoneBilchestnut ridge center AddressPersonal/IqxfrzWaoifp[birth year][address] [place], [place] [id number] * Guarantor: Edis WRAY TypeRelation to PatientDate of BirthPhoneBilchestnut ridge center AddressPersonal/GccmwqPfuiyo79/25/1981 [address] [place] [address] [place] [id number] Care Teams Team MemberRelationshipSpecialtyStart DateEnd Date Unknown, Provider PCP - [facility]01/17/17
--- OUTSIDE RECORDS SUMMARY | 2025-08-14 21:07 | XMS_ITS | Clinical Summary ---
Author Organization [facility] Address [address] [place] [address] Care Team Providers Care Jar Filler Name Role Phone Haider Lawson DO Unavailable +- [phone] Social History Tobacco UseTypesPacks/DayYears UsedDateSmoking Tobacco: Never Assessed CommentsUnknownSex and Gender InformationValueDate RecordedSex Assigned at Not on fileLegal OnxTktufe62/24/2022 9:54 AM EDTGender IdentityNot on fileSexual OrientationNot on file Plan of Treatment Not on file Insurance * Guarantor: MELISSA WRAY TypeRelation to PatientDate of BirthPhone Billing AddressPersonal/ClvtwpJisqiz14/25/1981 [address] [place] [address] Care Teams Team MemberRelationshipSpecialtyStart DateEnd Date Lulu Haider Ro DO [address] [place] [address] ReferringFaJeff Davis Hospital02/07/22
== END 2025-08-14 20:49 | disposition home or self-care (01) ==
LOC: LAB 20:48
PROVIDERS: Visit Provider Nurse Practitioner Family
DX: Z01.419 Encounter for gynecological examination (general) (routine) without abnormal findings (principal)
CPT/HCPCS: 88175